=== PATIENT | male | born 1995 | race Caucasian/White ===

== ENCOUNTER 2017-02-04 16:03 | Emergency (ER) | payer BC ==
[~2017-02-04] VITALS: Ht 182.9 cm; Wt 95.4 kg
[~2017-02-04 16:03] MED LIST: AMOX1TAB61 PO; HYDR-971 PO; ONDA4TAB10 PO; OXYC-323 PO
[2017-02-04 16:14] VITALS: BP 103/72
--- NOTE | 2017-02-04 16:35 | ED.ADGEN ---
Past History Past Medical History: Anxiety, Bipolar, Depression Past Surgical History: No Surgical History Smoking: Less than 1pk/day Alcohol Use: Rarely Drug Use: Marijuana Adult General Chief Complaint Chief Complaint Multiple medical complaints HPI HPI Patient is a 21-year-old male with history of bipolar, anxiety and depression who presents with multiple medical complaints. Patient states he was recently diagnosed with cluster headaches and had a headache with nausea earlier today. Headache has since resolved. Patient last vomited 1 hour prior to ED arrival despite taking Zofran. Patient also reports elevated blood pressure at home, which was normal upon ED arrival. Patient is also seeing just specialist for chronic lower abdominal pain. He has a previous diagnosis of mesenteric adenitis. He is scheduled for a CT of his abdomen pelvis this morning but missed the appointment and rescheduled it for tomorrow. Patient reports occasional bloody stools. Denies dizziness or lightheadedness. No fever chills or sweats. No other acute symptoms or complaints. Review of Systems Review of Systems Review symptoms as per history of present illness. All other review symptoms are negative. Current Medications Current Medications Current Medications Medications (Trade) Dose Ordered Sig/Justice Start Time Stop Time Status Last Admin Dose Admin Promethazine HCl (Phenergan Im) 25 mg 1X ONCE 02/04/17 16:45 02/04/17 16:46 Allergies Allergies Allergies Coded Allergies Type Severity Reaction Last Updated Verified cephalexin Allergy Unknown 11/09/16 Yes Physical Exam Physical Exam Constitutional: Well developed, well nourished, no acute distress, non-toxic appearance. HENT: Normocephalic, atraumatic, bilateral external ears normal, oropharynx moist, no oral exudates, nose normal. Eyes: PERRLA, EOMI, conjunctiva normal, no discharge. Neck: Normal range of motion, no tenderness, supple, no stridor. Cardiovascular:Heart rate regular rhythm, no murmur. Lungs & Thorax: Bilateral breath sounds clear to auscultation Abdomen: Bowel sounds normal, soft, right lower quadrant pain, no tenderness or masses on evaluation. Skin: Warm, dry, no erythema, no rash. a. Neurologic: Alert and oriented X 3, normal motor function, normal sensory function, no focal deficits noted. [] Psychologic: Affect, anxious, worried-appearing. EKG EKG [] Radiology/Procedures Radiology/Procedures [] Course & Med Decision Making Course & Med Decision Making Pertinent Labs and Imaging studies reviewed. (See chart for details) [Patient with headache now resolved and persistent nausea ,improved with Phenergan injection in the emergency department. He has a soft nonsurgical abdomen. H/o chronic intermittent abdominal pain is been worked up GI specialist with scheduled CT of abdomen and pelvis tomorrow.Will defer further workup of chronic pain to GI specialist and headache and management of blood pressure to PCP. Will provide prescription for Phenergan should nausea persist. Final Impression Final Impression [1. Nausea 2. Chronic abdominal pain] Problems: Dragon Disclaimer Dragon Disclaimer This electronic medical record was generated, in whole or in part, using a voice recognition dictation system. NIA BRODY DO February 04, 2017 16:35
[2017-02-04] MEDS ORDERED: PROMETHAZINE IM 25 MG/ML VIAL IM ONE (16:45)
== END 2017-02-04 16:54 | disposition home or self-care (01) ==
LOC: ER 16:03
DX: R11.2 Nausea with vomiting, unspecified (principal); G89.29 Other chronic pain; R10.9 Unspecified abdominal pain; F17.200 Nicotine dependence, unspecified, uncomplicated; F12.10 Cannabis abuse, uncomplicated; Z88.1 Allergy status to other antibiotic agents
CPT/HCPCS: 96372; 99283; J2550

== ENCOUNTER → 2017-02-05 | Outpatient (CLI) | payer BC ==
[2017-02-04 16:14] VITALS: BP 103/72
[~2017-02-05] MED LIST changes: +IOHEXOL 240 MG/ML 50ML VIAL. ONE; +IOHEXOL 300 MG/ML 75 ML VIAL. IV ONE
--- NOTE | 2017-02-05 10:27 | RAD ---
Examination: CT of the pelvis with oral and IV contrast History: History of right lower quadrant abdominal pain Comparison: 11/11/2016 Technique: Axial CT images of the abdomen pelvis were performed with oral and IV contrast. Coronal and sagittal reformats are performed. PQRS Compliance Statement: One or more of the following individualized dose reduction techniques were utilized for this examination: 1. Automated exposure control 2. Adjustment of the mA and/or kV according to patient size 3. Use of iterative reconstruction technique Findings: The visualized bibasal lungs grossly appears unremarkable. No evidence of free air identified in the abdomen. The visualized liver, spleen, adrenals grossly appears unremarkable. The gallbladder is mildly distended. Stomach is mildly distended. The visualized pancreas grossly appears unremarkable. The small bowel is nondilated. The appendix is normal. Feces and gas noted throughout the colon. There is minimal prominent appearing mucosa identified in the distal ascending colon and the proximal transverse colon. The urinary bladder is mildly distended. No evidence of free fluid identified. The bilateral kidneys enhance symmetrically. No evidence of hydronephrosis. The caliber of the aorta grossly appears unremarkable. No evidence of lytic bony destructive lesion identified. Impression: 1. Minimal prominent appearing mucosa identified in the distal ascending colon and the proximal transverse colon probably due to nondistention and less likely colitis. Otherwise no acute intra-abdominal findings.
== END | disposition home or self-care (01) ==
LOC: CT 08:25
PROVIDERS: ATTEND Internal Medicine Gastroenterology
DX: R10.31 Right lower quadrant pain (principal); R19.7 Diarrhea, unspecified
CPT/HCPCS: 74177; Q9966; Q9967

== ENCOUNTER 2017-05-03 21:14 | Emergency (ER) | payer BC ==
[~2017-05-03] VITALS: Ht 185.4 cm; Wt 95.4 kg
[~2017-05-03 21:14] MED LIST changes: -IOHEXOL 240 MG/ML 50ML VIAL. ONE; -IOHEXOL 300 MG/ML 75 ML VIAL. IV ONE
[2017-05-03 21:24] VITALS: BP 147/87
[2017-05-03] MEDS ORDERED: KETOROLAC 60 MG/2 ML VIAL. IM ONE (21:30)
[2017-05-03] MEDS ORDERED: diphenhydrAMINE 50 MG/ML VIAL IM ONE (21:30)
[2017-05-03] MEDS ORDERED: PROCHLORPERAZINE 10 MG/2 ML VIAL. IM ONE (21:30)
--- NOTE | 2017-05-03 21:42 | PHYS DOC ---
Past History Past Medical History: Anxiety, Depression, Other Past Surgical History: No Surgical History Smoking: Less than 1pk/day Alcohol Use: None Drug Use: None Adult General Chief Complaint Chief Complaint: HEADACHE HPI HPI Patient is a 22 year old M who presents with headache. He describes his headache as a constant dull pain that is worsened with light and improved by dark. He has a diagnosis of cluster headache and over the past several days states that he has been having occasional headaches consistent with his previous cluster headaches. The headache he is having currently is not different than any previous cluster headaches he's had in the past. Review of Systems Review of Systems Constitutional: Denies fever or chills [] Eyes: Denies change in visual acuity, redness, or eye pain [] HENT: Denies nasal congestion or sore throat [] Respiratory: Denies cough or shortness of breath [] Cardiovascular: No additional information not addressed in HPI [] GI: Denies abdominal pain, nausea, vomiting, bloody stools or diarrhea [] : Denies dysuria or hematuria [] Musculoskeletal: Denies back pain or joint pain [] Integument: Denies rash or skin lesions [] Neurologic: Denies focal weakness or sensory changes [] Endocrine: Denies polyuria or polydipsia [] Family History Family History Noncontributory Current Medications Current Medications Current Medications Medications (Trade) Dose Ordered Sig/Justice Start Time Stop Time Status Last Admin Dose Admin Diphenhydramine HCl (Benadryl) 50 mg 1X ONCE 05/03/17 21:45 05/03/17 21:46 UNV Ketorolac Tromethamine (Toradol) 30 mg 1X ONCE 05/03/17 21:45 05/03/17 21:46 UNV Prochlorperazine Edisylate (Compazine) 10 mg 1X ONCE 05/03/17 21:45 05/03/17 21:46 UNV Sodium Chloride 1,000 ml @ 1,000 mls/hr 1X ONCE 05/03/17 21:45 05/03/17 22:44 UNV Allergies Allergies Allergies Coded Allergies Type Severity Reaction Last Updated Verified cephalexin Allergy Unknown 11/09/16 Yes Physical Exam Physical Exam Constitutional: Well developed, well nourished, no acute distress, non-toxic appearance. [] HENT: Normocephalic, atraumatic, bilateral external ears normal, oropharynx moist, no oral exudates, nose normal. [] Dental caries were noted however no tenderness to palpation on teeth Eyes: PERRLA, EOMI, conjunctiva normal, no discharge. [] Neck: Normal range of motion, no tenderness, supple, no stridor. [] Cardiovascular:Heart rate regular rhythm, no murmur [] Lungs & Thorax: Bilateral breath sounds clear to auscultation [] Abdomen: Bowel sounds normal, soft, no tenderness, no masses, no pulsatile masses. [] Skin: Warm, dry, no erythema, no rash. [] Back: No tenderness, no CVA tenderness. [] Extremities: No tenderness, no cyanosis, no clubbing, ROM intact, no edema. [] Neurologic: Alert and oriented X 3, normal motor function, normal sensory function, no focal deficits noted. [] Psychologic: Affect normal, judgement normal, mood normal. [] Current Patient Data Vital Signs Vital Signs Date Time Temp Pulse Resp B/P (MAP) Pulse Ox O2 Delivery O2 Flow Rate FiO2 05/03/17 21:24 97.8 104 20 97 Room Air Course & Med Decision Making Course & Med Decision Making Pertinent Labs and Imaging studies reviewed. (See chart for details) Elvin symptoms were consistent with previous cluster headaches. His history was consistent with cluster headaches. He was treated with Benadryl and Toradol and Compazine IV as well as IV fluids. His symptoms improved and remained stable prior to discharge Dragon Disclaimer Dragon Disclaimer This chart was dictated in whole or in part using Voice Recognition software in a busy, high-work load, and often noisy Emergency Department environment. It may contain unintended and wholly unrecognized errors or omissions. Departure Departure: Impression: Primary Impression: Cluster headache Disposition: HOME, SELF-CARE Condition: IMPROVED Referrals: STARR BOSTON (PCP) Patient Instructions: Cluster Headache Additional Instructions: Shauna was seen in the emergency room with headache. No emergency medical condition was found on history or physical exam. The symptoms were treated with IV fluids and medication. His headache was controlled prior to discharge. He is advised to follow-up with neurology as soon as possible for further evaluation and management Problem Qualifiers Primary Impression: Cluster headache Headache chronicity pattern: episodic headache Intractability: not intractable Qualified Codes: G44.019 - Episodic cluster headache, not intractable SCALETTY,PETER N MD May 03, 2017 21:42
[2017-05-03] MEDS ORDERED: KETOROLAC 30 MG/ML VIAL. IV ONE (21:45)
[2017-05-03] MEDS ORDERED: IV NORMAL SALINE 1,000ML 1,000 ML IV ONE (21:45)
[2017-05-03] MEDS ORDERED: diphenhydrAMINE 50 MG/ML VIAL IVP ONE (21:45)
[2017-05-03] MEDS ORDERED: PROCHLORPERAZINE 10 MG/2 ML VIAL. IV ONE (21:45)
== END 2017-05-03 23:00 | disposition home or self-care (01) ==
LOC: ER 21:14
DX: G44.019 Episodic cluster headache, not intractable (principal); F17.200 Nicotine dependence, unspecified, uncomplicated; F41.9 Anxiety disorder, unspecified; F32.9 Major depressive disorder, single episode, unspecified; Z88.1 Allergy status to other antibiotic agents
CPT/HCPCS: 96361; 96374; 96375; 99284; J0780; J1200; J1885; J7030

== ENCOUNTER 2017-08-06 15:43 | Emergency (ER) | payer BC ==
[2017-08-06 15:43] VITALS: BP 151/102
--- NOTE | 2017-08-06 16:37 | RAD ---
CT of the abdomen and pelvis without contrast 08/06/2017 Indication: Bilateral flank pain, lower abdominal pain, hematuria, and painful urination. Onset today. Comparison study: CT of the abdomen and pelvis with contrast February 05, 2017 Technique: Multidetector CT imaging of the abdomen and pelvis was performed without the interim ministration of IV contrast. Findings: The visualized lung bases are grossly unremarkable. The liver is diffusely low in attenuation, most commonly reflecting hepatic steatosis. The gallbladder is grossly unremarkable. The spleen is mildly enlarged but grossly stable from prior studies. Adrenal glands are within normal limits. Pancreas is grossly unremarkable. Bilateral kidneys appear grossly unremarkable noncontrast enhanced appearance. There is no evidence of nephrolithiasis or hydronephrosis. Bilateral ureters are decompressed and normal in course and caliber. The visualized bladder is grossly unremarkable. There is no evidence of bowel obstruction. There appears to be at least mild bowel wall thickening involving the proximal jejunum, just beyond the ligament of Treitz. Evaluation is limited without oral and IV contrast. The appendix is unremarkable in appearance. No free fluid or free air is seen in the abdomen or pelvis. No evidence of acute osseous abnormality is identified. Impression: 1. At least mild bowel wall thickening involving the proximal jejunum. Though evaluation is limited without IV and oral contrast. The appearance is somewhat nonspecific, may represent a focal enteritis. Follow-up CT or MR enterography could be considered as clinically indicated. Alternatively given presence of findings in the proximal most small bowel, a follow-up endoscopy could be considered. 2. No evidence of nephrolithiasis, hydronephrosis, or acute obstructive uropathy. 3. Similar splenomegaly. 4. Hepatic steatosis
[2017-08-06 16:54] LABS: CALCIUM 9.8 mg/dL (8.5-10.1); CREATININE 0.9 mg/dL (0.7-1.3); GFR 104.6; POTASSIUM 3.7 mmol/L (3.5-5.1)
--- NOTE | 2017-08-06 17:13 | PHYS DOC ---
Past History Past Medical History: Migraines, Other Past Surgical History: No Surgical History Smoking: Less than 1pk/day Alcohol Use: None Drug Use: Marijuana Adult General Chief Complaint Chief Complaint: PAIN ON URINATION [facility] HPI Patient is a 22 year old male who presents with 1 day history of dysuria frequency and burning questionable right flank pain that resolved; no fever no diarrhea no history of STDs. Review of Systems Review of Systems Constitutional: Denies fever or chills [] Eyes: Denies change in visual acuity, redness, or eye pain [] HENT: Denies nasal congestion or sore throat [] Respiratory: Denies cough or shortness of breath [] Cardiovascular: No additional information not addressed in HPI [] GI: Denies abdominal pain, nausea, vomiting, bloody stools or diarrhea [] : Denies dysuria or hematuria [] Musculoskeletal: Denies back pain or joint pain [] Integument: Denies rash or skin lesions [] Neurologic: Denies headache, focal weakness or sensory changes [] Endocrine: Denies polyuria or polydipsia [] All other systems were reviewed and found to be within normal limits, except as documented in this note. Allergies Allergies Allergies Coded Allergies Type Severity Reaction Last Updated Verified cephalexin Allergy Unknown 11/09/16 Yes Physical Exam Physical Exam Constitutional: Well developed, well nourished, no acute distress, non-toxic appearance. [] HENT: Normocephalic, atraumatic, bilateral external ears normal, oropharynx moist, no oral exudates, nose normal. [] Eyes: PERRLA, EOMI, conjunctiva normal, no discharge. [] Neck: Normal range of motion, no tenderness, supple, no stridor. [] Cardiovascular:Heart rate regular rhythm, no murmur [] Lungs & Thorax: Bilateral breath sounds clear to auscultation [] Abdomen: Bowel sounds normal, soft, no tenderness, no masses, no pulsatile masses. exam testes are distended nontender no scrotal swelling no inguinal hernia palpable penis circumcised no lesions no swelling[] Skin: Warm, dry, no erythema, no rash. [] Back: No tenderness, no CVA tenderness. [] Extremities: No tenderness, no cyanosis, no clubbing, ROM intact, no edema. [] Neurologic: Alert and oriented X 3, normal motor function, normal sensory function, no focal deficits noted. [] Psychologic: Affect normal, judgement normal, mood normal. [] Current Patient Data Vital Signs Vital Signs Date Time Temp Pulse Resp B/P (MAP) Pulse Ox O2 Delivery O2 Flow Rate FiO2 08/06/17 15:43 97.6 120 18 99 Room Air Lab Results Laboratory Tests Test 08/06/17 16:33 Sodium Level 139 mmol/L (136-145) Potassium Level 3.7 mmol/L (3.5-5.1) Chloride Level 99 mmol/L (98-107) Carbon Dioxide Level 32 mmol/L (21-32) Anion Gap 8 (6-14) Blood Urea Nitrogen 10 mg/dL (8-26) Creatinine 0.9 mg/dL (0.7-1.3) Estimated GFR (Cockcroft-Gault) 104.6 Glucose Level 87 mg/dL (70-99) Calcium Level 9.8 mg/dL (8.5-10.1) EKG EKG [] Radiology/Procedures Radiology/Procedures CT scan abdomen and pelvis negative per radiology report[] Course & Med Decision Making Course & Med Decision Making Pertinent Labs and Imaging studies reviewed. (See chart for details) [GC Chlamydia are pending. UA showed some trace hematuria so the patient may have passed a kidney stone.] Dragon Disclaimer Dragon Disclaimer This electronic medical record was generated, in whole or in part, using a voice recognition dictation system. Departure Departure: Impression: Primary Impression: Renal colic on right side Additional Impressions: Hematuria Dysuria Disposition: HOME, SELF-CARE Condition: IMPROVED Referrals: STARR BOSTON (PCP) Patient Instructions: Hematuria, Adult Problem Qualifiers JAYANT ANDERSON MD Aug 06, 2017 17:13
[2017-08-06 17:14] LABS: BACTERIA,URINE 0 /HPF (0-FEW); BILIRUBIN,URINE NEG (NEG); CLARITY,URINE CLEAR; COLOR,URINE STRAW; GLUCOSE,URINE NEG (NEG); NITRITE,URINE NEG (NEG); SQUAMOUS EPITHELIAL CELL,UR OCC /LPF; UROBILINOGEN,URINE 0.2 mg/dL (0.2 mg/dL); WBC,URINE OCC /HPF (0-4)
== END 2017-08-06 18:21 | disposition home or self-care (01) ==
LOC: ER 15:43
DX: N23 Unspecified renal colic (principal); R31.9 Hematuria, unspecified; R30.0 Dysuria; F17.210 Nicotine dependence, cigarettes, uncomplicated; F12.10 Cannabis abuse, uncomplicated; Z88.1 Allergy status to other antibiotic agents
CPT/HCPCS: 36415; 74176; 80048; 81001; 87491; 87591; 99285-25

== ENCOUNTER 2018-07-16 09:36 | Inpatient (IN) | payer BC ==
[~2018-07-16] VITALS: Ht 182.9 cm; Wt 99.3 kg
[2018-07-16 10:11] LABS: BASO # 0.1 x10^3/uL (0.0-0.2); BASO % 1 % (0-3); EOS # 0.2 x10^3/uL (0.0-0.7); EOS % 2 % (0-3); HEMATOCRIT 46.4 % (39.0-53.0); HEMOGLOBIN 16.3 g/dL (13.0-17.5); LYMPH # 2.4 x10^3/uL (1.0-4.8); LYMPH % 27 % (24-48); MEAN CORPUSCULAR HEMOGLOBIN 31 pg (25-35); MEAN CORPUSCULAR HGB CONC 35 g/dL (31-37); MEAN CORPUSCULAR VOLUME 87 fL (79-100); MONO # 1.1 x10^3/uL (0.0-1.1); MONO % 12 % (0-9); NEUT # 5.3 x10^3uL (1.8-7.7); NEUT % 59 % (31-73); PLATELET COUNT 240 x10^3/uL (140-400); RED BLOOD COUNT 5.33 x10^6/uL (4.30-5.70); RED CELL DISTRIBUTION WIDTH 13.5 % (11.5-14.5)
[2018-07-16 10:22] LABS: ALBUMIN 4.7 g/dL (3.4-5.0); CALCIUM 9.7 mg/dL (8.5-10.1); CREATININE 0.9 mg/dL (0.7-1.3); DIRECT BILIRUBIN 0.2 mg/dL (0.0-0.2); GFR 103.7; POTASSIUM 3.3 mmol/L (3.5-5.1); TOTAL BILIRUBIN 1.4 mg/dL (0.2-1.0); TOTAL PROTEIN 8.1 g/dL (6.4-8.2)
--- NOTE | 2018-07-16 10:22 | RAD ---
PQRS Compliance Statement: One or more of the following individualized dose reduction techniques were utilized for this examination: 1. Automated exposure control 2. Adjustment of the mA and/or kV according to patient size 3. Use of iterative reconstruction technique CT HEAD AND CERVICAL SPINE WITHOUT CONTRAST History: ALTERED MENTAL STATUS, WAS HITTING HIS HEAD AGAINST WALL THIS AM Comparison: None. Procedure: Axial images are obtained of the head from the skull base through the vertex without IV contrast. Noncontrast helical CT of the cervical spine was performed. Axial, sagittal, and coronal reconstructions were obtained. Findings: The ventricles and sulci are normal for the patient's age. No mass-effect, midline shift, hemorrhage or obvious acute infarction is identified. Basilar cisterns are patent. Bone windows demonstrate no significant calvarial abnormality. The visualized paranasal sinuses are clear. Mastoid air cells are well aerated. There is no evidence of acute fracture or acute malalignment of the cervical spine. The vertebral body height and alignment are maintained. 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 The facet joints are intact. No significant narrowing of the central canal. The craniovertebral junction is normal. Opacities in the bilateral external auditory canals. Visualized soft tissues of the neck demonstrate no significant abnormalities. The visualized lung apices are clear. IMPRESSION: 1. No acute intracranial abnormality. 2. No acute fracture of the cervical spine. Electronically signed by: Ariel Arellano MD (07/16/2018 10:19 AM) [id number]
[2018-07-16 12:19] LABS: BARBITURATES NEG (NEG); BENZODIAZEPINES NEG (NEG); CANNABINOIDS POS (NEG); COCAINE NEG (NEG); METHADONE NEG (NEG); OPIATES NEG (NEG); PHENCYCLIDINE NEG (NEG)
[2018-07-16 12:20] LABS: AMPHETAMINE/METHAMPHETAMINE NEG (NEG)
[2018-07-16 12:24] LABS: BACTERIA,URINE 0 /HPF (0-FEW); BILIRUBIN,URINE NEG (NEG); CLARITY,URINE HAZY; COLOR,URINE YELLOW; GLUCOSE,URINE NEG (NEG); NITRITE,URINE NEG (NEG); RBC,URINE 0 /HPF (0-2); SQUAMOUS EPITHELIAL CELL,UR FEW /LPF; UROBILINOGEN,URINE 0.2 mg/dL (0.2 mg/dL); WBC,URINE OCC /HPF (0-4)
[2018-07-16] MEDS ORDERED: POTASSIUM CHLORIDE 20 MEQ TABLET.ER. PO ONE (12:30)
--- NOTE | 2018-07-16 13:33 | PHYS DOC ---
Past History Past Medical History: Depression, Migraines, Other Past Surgical History: No Surgical History Smoking: Less than 1pk/day Alcohol Use: None Drug Use: Marijuana Adult General Chief Complaint Chief Complaint: SUICDAL IDEATION HPI HPI Patient is a 23 year old male who was in by EMS because of suicidal ideation. Patient was banging his head multiple times on cabinet top this morning and his called 911 because of suicidal ideation. Patient has history of depression and previous suicidal ideation and mental hospitalization. Patient's stated that she had to put herself between him and the weapon at home for prevention of hurting himself. Patient denies suicidal and homicidal ideation and states he had hallucination. EMS brought him with c-collar in place because of head injury. Review of Systems Review of Systems Constitutional: Denies fever or chills [] Eyes: Denies change in visual acuity, redness, or eye pain [] HENT: Denies nasal congestion or sore throat [] Respiratory: Denies cough or shortness of breath [] Cardiovascular: No additional information not addressed in HPI [] GI: Denies abdominal pain, nausea, vomiting, bloody stools or diarrhea [] : Denies dysuria or hematuria [] Musculoskeletal: Denies back pain or joint pain [] Integument: Denies rash or skin lesions [] Neurologic: Denies headache, focal weakness or sensory changes [] Endocrine: Denies polyuria or polydipsia [] All other systems were reviewed and found to be within normal limits, except as documented in this note. Current Medications Current Medications Current Medications Medications (Trade) Dose Ordered Sig/[facility] Start Time Stop Time Status Last Admin Dose Admin Potassium Chloride (Klor-Con) 40 meq 1X ONCE 07/16/18 12:30 07/16/18 12:31 DC 07/16/18 12:29 40 MEQ Allergies Allergies Allergies Coded Allergies Type Severity Reaction Last Updated Verified cephalexin Allergy Unknown 11/09/16 Yes Physical Exam Physical Exam Constitutional: Well developed, well nourished, mild distress, non-toxic appearance. [] HENT: Normocephalic, atraumatic, bilateral external ears normal, oropharynx moist, no oral exudates, nose normal. [] Eyes: PERRLA, EOMI, conjunctiva normal, no discharge. [] Neck: Immobilized by c-collar Cardiovascular:Heart rate regular rhythm, no murmur [] Lungs & Thorax: Bilateral breath sounds clear to auscultation [] Abdomen: Bowel sounds normal, soft, no tenderness, no masses, no pulsatile masses. [] Skin: Warm, dry, no erythema, no rash. [] Back: No tenderness, no CVA tenderness. [] Extremities: No tenderness, no cyanosis, no clubbing, ROM intact, no edema. [] Neurologic: Alert and oriented X 3, normal motor function, normal sensory function, no focal deficits noted. [] Psychologic: Affect anxious, judgement normal, mood normal. [] Current Patient Data Vital Signs Vital Signs Date Time Temp Pulse Resp B/P (MAP) Pulse Ox O2 Delivery O2 Flow Rate FiO2 07/16/18 09:36 97.4 77 18 96 Room Air Lab Results Laboratory Tests Test 07/16/18 09:58 07/16/18 11:54 White Blood Count 9.0 x10^3/uL (4.0-11.0) Red Blood Count 5.33 x10^6/uL (4.30-5.70) Hemoglobin 16.3 g/dL (13.0-17.5) Hematocrit 46.4 % (39.0-53.0) Mean Corpuscular Volume 87 fL (79-100) Mean Corpuscular Hemoglobin 31 pg (25-35) Mean Corpuscular Hemoglobin Concent 35 g/dL (31-37) Red Cell Distribution Width 13.5 % (11.5-14.5) Platelet Count 240 x10^3/uL (140-400) Neutrophils (%) (Auto) 59 % (31-73) Lymphocytes (%) (Auto) 27 % (24-48) Monocytes (%) (Auto) 12 % (0-9) H Eosinophils (%) (Auto) 2 % (0-3) Basophils (%) (Auto) 1 % (0-3) Neutrophils # (Auto) 5.3 x10^3uL (1.8-7.7) Lymphocytes # (Auto) 2.4 x10^3/uL (1.0-4.8) Monocytes # (Auto) 1.1 x10^3/uL (0.0-1.1) Eosinophils # (Auto) 0.2 x10^3/uL (0.0-0.7) Basophils # (Auto) 0.1 x10^3/uL (0.0-0.2) Sodium Level 137 mmol/L (136-145) Potassium Level 3.3 mmol/L (3.5-5.1) L Chloride Level 101 mmol/L (98-107) Carbon Dioxide Level 25 mmol/L (21-32) Anion Gap 11 (6-14) Blood Urea Nitrogen 15 mg/dL (8-26) Creatinine 0.9 mg/dL (0.7-1.3) Estimated GFR (Cockcroft-Gault) 103.7 Glucose Level 84 mg/dL (70-99) Calcium Level 9.7 mg/dL (8.5-10.1) Total Bilirubin 1.4 mg/dL (0.2-1.0) H Direct Bilirubin 0.2 mg/dL (0.0-0.2) Aspartate Amino Transferase (AST) 49 U/L (15-37) H Alanine Aminotransferase (ALT) 74 U/L (16-63) H Alkaline Phosphatase 91 U/L (46-116) Total Protein 8.1 g/dL (6.4-8.2) Albumin 4.7 g/dL (3.4-5.0) Ethyl Alcohol Level < 10 mg/dL (0-10) Urine Collection Type Void Urine Color Yellow Urine Clarity Hazy Urine pH 5.5 Urine Specific [place] 1.020 Urine Protein Neg (NEG-TRACE) Urine Glucose (UA) Neg mg/dL (NEG) Urine Ketones (Stick) >=160 mg/dL (NEG) Urine Blood Neg (NEG) Urine Nitrite Neg (NEG) Urine Bilirubin Neg (NEG) Urine Urobilinogen Dipstick 0.2 mg/dL (0.2 mg/dL) Urine Leukocyte Esterase Neg (NEG) Urine RBC 0 /HPF (0-2) Urine WBC Occ /HPF (0-4) Urine Squamous Epithelial Cells Few /LPF Urine Bacteria 0 /HPF (0-FEW) Urine Mucus Slight /LPF Urine Opiates Screen Neg (NEG) Urine Methadone Screen Neg (NEG) Urine Barbiturates Neg (NEG) Urine Phencyclidine Screen Neg (NEG) Urine Amphetamine/Methamphetamine Neg (NEG) Urine Benzodiazepines Screen Neg (NEG) Urine Cocaine Screen Neg (NEG) Urine Cannabinoids Screen Pos (NEG) Urine Ethyl Alcohol Neg (NEG) EKG EKG [] Radiology/Procedures Radiology/Procedures [address] [address] IMAGING REPORT Signed PATIENT: DELBERT RHODES ACCOUNT: [id number] : 1995 LOCATION: ER AGE: 23 SEX: M EXAM STATUS: REG ER ORD. PHYSICIAN: CHANDLER RODRIGUEZ MD REASON: head injury PROCEDURE: [facility] Compliance Statement: One or more of the following individualized dose reduction techniques were utilized for this examination: 1. Automated exposure control 2. Adjustment of the mA and/or kV according to patient size 3. Use of iterative reconstruction technique CT HEAD AND CERVICAL SPINE WITHOUT CONTRAST History: ALTERED MENTAL STATUS, WAS HITTING HIS HEAD AGAINST WALL THIS AM Comparison: None. Procedure: Axial images are obtained of the head from the skull base through the vertex without IV contrast. Noncontrast helical CT of the cervical spine was performed. Axial, sagittal, and coronal reconstructions were obtained. Findings: The ventricles and sulci are normal for the patient's age. No mass-effect, midline shift, hemorrhage or obvious acute infarction is identified. Basilar cisterns are patent. Bone windows demonstrate no significant calvarial abnormality. The visualized paranasal sinuses are clear. Mastoid air cells are well aerated. There is no evidence of acute fracture or acute malalignment of the cervical spine. The vertebral body height and alignment are maintained. 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 The facet joints are intact. No significant narrowing of the central canal. The craniovertebral junction is normal. Opacities in the bilateral external auditory canals. Visualized soft tissues of the neck demonstrate no significant abnormalities. The visualized lung apices are clear. IMPRESSION: 1. No acute intracranial abnormality. 2. No acute fracture of the cervical spine. Electronically signed by: Ariel Arellano MD (07/16/2018 10:19 AM) [id number] DICTATED AND SIGNED BY: ARIEL ARELLANO MD DATE: 07/16/18 1014 CC: CHANDLER RODRIGUEZ MD; ST[facility] ~ Course & Med Decision Making Course & Med Decision Making Pertinent Labs and Imaging studies reviewed. (See chart for details) Evaluation of patient in ER showed 23-year-old male patient brought in by EMS because of suicidal ideation and head injury. Patient denies suicidal ideation with his stated he wanted to use a gun to kill himself and banging his head against the cabinet top. Patient had unremarkable labs except for mild elevation of liver function tests and hypokalemia. Was evaluated by tele- psychiatric and had criteria for inpatient admission. Unfortunately there was not any available psych bed for tonight. Dr. Gomez accepted admission at 1727. Dragon Disclaimer Dragon Disclaimer This electronic medical record was generated, in whole or in part, using a voice recognition dictation system. Departure Departure: Impression: Primary Impression: Suicidal ideation Additional Impressions: Hypokalemia Elevated liver function tests Tobacco abuse Disposition: ADMITTED INPATIENT (at 1728) Admitting Physician: Other (Dr. Juanjo Ruiz accepted admission at 1727) Condition: IMPROVED Referrals: STARR BOSTON (PCP) Problem Qualifiers CHANDLER RODRIGUEZ MD Jul 16, 2018 13:33
[2018-07-16] MEDS ORDERED: LORazepam 1 MG TABLET PO ONE (16:15)
[2018-07-16 19:29] VITALS: BP 147/82
[2018-07-16 20:00] VITALS: BP 144/69
[2018-07-16] MEDS: IBUPROFEN 600 MG TABLET. PO PRN (20:43)
[2018-07-16 21:00] VITALS: BP 149/68
[2018-07-16 22:00] VITALS: BP 110/60
[2018-07-16 23:33] VITALS: BP 100/51
[2018-07-17 01:30] VITALS: BP 106/44
[2018-07-17 03:00] VITALS: BP 122/66
[2018-07-17 05:20] VITALS: BP 112/60
[2018-07-17 06:07] LABS: CALCIUM 9.5 mg/dL (8.5-10.1); CREATININE 0.9 mg/dL (0.7-1.3); GFR 103.7; POTASSIUM 3.8 mmol/L (3.5-5.1)
[2018-07-17 10:53] VITALS: BP 127/81
[2018-07-17 11:43] LABS: ALBUMIN 4.4 g/dL (3.4-5.0); DIRECT BILIRUBIN 0.2 mg/dL (0.0-0.2); TOTAL BILIRUBIN 0.9 mg/dL (0.2-1.0)
[2018-07-17] MEDS: LORazepam 1 MG TABLET PO PRN ×2 (14:15→22:40)
[2018-07-17 14:57] VITALS: BP 128/63
[2018-07-17 19:35] VITALS: BP 143/67
--- NOTE | 2018-07-17 22:37 | PDOC1 ---
History and Physical Date of Admission: Date of Admission: July 17, 2018 Chief Complaint: Chief Complain: Suicidal ideation, abdominal pain, groin pain Source: Source: Caregiver, Chart review, Patient HPI: HPI: Patient is a 23 year old male who was in by EMS with report of suicidal ideation. Patient was reportedly banging his head multiple times on cabinet top this morning and his called 911 because of suicidal ideation. Patient has history of depression and previous suicidal ideation and mental hospitalization. Patient's stated that she had to put herself between him and the countertop at home for prevention of hurting himself. Patient denies current suicidal and homicidal ideation and states he had hallucination. EMS brought him with c-collar in place because of head injury. Patient has many stressors, they used to live here moved to [place] briefly and had moved back he does not have a job. His is the breadwinner she is now . He has episodes of cyclic vomiting and abdominal pain related to his chronic marijuana use. Recently he's had right upper quadrant abdominal pain especially after eating developing some nausea no vomiting no stool changes no fever chills or myalgias no bad food exposure. He also has a lump in his right groin he thinks is a lymph node but is concerned it could be a hernia is painful at times. States he's been evaluated by oncology for his lymph nodes and refused bone marrow biopsy. States he was evaluated for abdominal pain a year and a half ago but at the time his pain was right lower quadrant and he was diagnosed with mesenteric adenitis. Denies prior abdominal surgeries and I find him today sitting up in bed watching television in no apparent distress. He states that he is not suicidal he is just frustrated about his current stressors and pain complaints. I discussed the elevation of his liver enzymes ( very mild) from the ED blood and with his positive Conde sign on exam the possibility of cholecystitis. He is agreeable to stay for ultrasound of his right upper quadrant as well as the right groin swelling and recheck of his LFTs. He is no longer suicidal ideation. Past Medical History: GI: Other (cannabinoids induce cyclic vomiting syndrome, mesenteric adenitis) Heme/Onc: Other (lymphadenopathy) Psych: Anxiety, Depression, Other (prior suicide attempts with overdose) Past Surgical History: PSH: No pertinent Social History: Smoke: 1 pack per day Alcohol: occassional Drugs: Marijuana Allergies: Allergies: Coded Allergies: cephalexin (Verified Allergy, Unknown, 11/09/16) Current Medications: Current Medications: Current Medications Medications (Trade) Dose Ordered Sig/[facility] Start Time Stop Time Status Last Admin Dose Admin Ibuprofen (Motrin) 600 mg PRN Q6HRS PRN 07/16/18 20:45 07/16/18 20:43 600 MG Lorazepam (Ativan) 1 mg PRN Q8HRS PRN 07/17/18 14:00 07/17/18 14:15 1 MG Potassium Chloride (Klor-Con) 40 meq 1X ONCE 07/16/18 12:30 07/16/18 12:31 DC 07/16/18 12:29 40 MEQ ROS: ROS: Constitutional: No fever or chills Eyes: No eye pain or blurred vision Skin: No rash or itching Cardiovascular: No chest pain, syncope, palpitations, dyspnea on exertion, or edema Respiratory: No cough or difficulty breathing Gastrointestinal: See history of present illness Neurologic: No headaches or focal neurologic deficits Endocrine: No heat or cold intolerance Genitourinary: No incontinence or hematuria Musculoskeletal: No joint pain or swelling Lymphatics: See history of present illness and past medical history Psychiatric: See history of present illness PE: PE: Gen.: Alert, pleasant, no apparent distress HEENT: Normocephalic atraumatic, PERRLA EOMI, no scleral icterus, oral mucosa pink and moist Neck: Supple, no lymphadenopathy, nontender Cardiovascular: Normal S1 and S2 no murmurs Pulmonary: Lungs are clear bilaterally with good air movement no respiratory distress Abdomen: Soft nondistended positive Conde negative McBurney no rebound or guard bowel sounds present no masses Extremities: No clubbing, cyanosis or edema, appears to be a reactive lymph node at the right inguinal region is tender no evidence of infection at the genitals or right lower extremity Neuro: Alert and oriented 3, cranial nerves II through XII grossly intact, no lateralizing neuro deficits Skin: Warm, dry Vitals: Vitals: Vital Signs Date Time Temp Pulse Resp B/P (MAP) Pulse Ox O2 Delivery O2 Flow Rate FiO2 07/17/18 19:35 98.1 81 20 143/67 (92) 98 Room Air 07/17/18 05:20 97.0 Labs: Labs: Laboratory Tests Test 07/16/18 09:58 07/16/18 11:54 07/16/18 19:30 07/17/18 05:05 White Blood Count 9.0 x10^3/uL (4.0-11.0) Red Blood Count 5.33 x10^6/uL (4.30-5.70) Hemoglobin 16.3 g/dL (13.0-17.5) Hematocrit 46.4 % (39.0-53.0) Mean Corpuscular Volume 87 fL (79-100) Mean Corpuscular Hemoglobin 31 pg (25-35) Mean Corpuscular Hemoglobin Concent 35 g/dL (31-37) Red Cell Distribution Width 13.5 % (11.5-14.5) Platelet Count 240 x10^3/uL (140-400) Neutrophils (%) (Auto) 59 % (31-73) Lymphocytes (%) (Auto) 27 % (24-48) Monocytes (%) (Auto) 12 % (0-9) Eosinophils (%) (Auto) 2 % (0-3) Basophils (%) (Auto) 1 % (0-3) Neutrophils # (Auto) 5.3 x10^3uL (1.8-7.7) Lymphocytes # (Auto) 2.4 x10^3/uL (1.0-4.8) Monocytes # (Auto) 1.1 x10^3/uL (0.0-1.1) Eosinophils # (Auto) 0.2 x10^3/uL (0.0-0.7) Basophils # (Auto) 0.1 x10^3/uL (0.0-0.2) Sodium Level 137 mmol/L (136-145) 139 mmol/L (136-145) Potassium Level 3.3 mmol/L (3.5-5.1) 3.8 mmol/L (3.5-5.1) Chloride Level 101 mmol/L (98-107) 104 mmol/L (98-107) Carbon Dioxide Level 25 mmol/L (21-32) 27 mmol/L (21-32) Anion Gap 11 (6-14) 8 (6-14) Blood Urea Nitrogen 15 mg/dL (8-26) 13 mg/dL (8-26) Creatinine 0.9 mg/dL (0.7-1.3) 0.9 mg/dL (0.7-1.3) Estimated GFR (Cockcroft-Gault) 103.7 103.7 Glucose Level 84 mg/dL (70-99) 89 mg/dL (70-99) Calcium Level 9.7 mg/dL (8.5-10.1) 9.5 mg/dL (8.5-10.1) Total Bilirubin 1.4 mg/dL (0.2-1.0) 0.9 mg/dL (0.2-1.0) Direct Bilirubin 0.2 mg/dL (0.0-0.2) 0.2 mg/dL (0.0-0.2) Aspartate Amino Transf (AST/SGOT) 49 U/L (15-37) 42 U/L (15-37) Alanine Aminotransferase (ALT/SGPT) 74 U/L (16-63) 70 U/L (16-63) Alkaline Phosphatase 91 U/L (46-116) 86 U/L (46-116) Total Protein 8.1 g/dL (6.4-8.2) 8.0 g/dL (6.4-8.2) Albumin 4.7 g/dL (3.4-5.0) 4.4 g/dL (3.4-5.0) Ethyl Alcohol Level < 10 mg/dL (0-10) Urine Collection Type Void Urine Color Yellow Urine Clarity Hazy Urine pH 5.5 Urine Specific [place] 1.020 Urine Protein Neg (NEG-TRACE) Urine Glucose (UA) Neg mg/dL (NEG) Urine Ketones (Stick) >=160 mg/dL (NEG) Urine Blood Neg (NEG) Urine Nitrite Neg (NEG) Urine Bilirubin Neg (NEG) Urine Urobilinogen Dipstick 0.2 mg/dL (0.2 mg/dL) Urine Leukocyte Esterase Neg (NEG) Urine RBC 0 /HPF (0-2) Urine WBC Occ /HPF (0-4) Urine Squamous Epithelial Cells Few /LPF Urine Bacteria 0 /HPF (0-FEW) Urine Mucus Slight /LPF Urine Opiates Screen Neg (NEG) Urine Methadone Screen Neg (NEG) Urine Barbiturates Neg (NEG) Urine Phencyclidine Screen Neg (NEG) Urine Amphetamine/Methamphetamine Neg (NEG) Urine Benzodiazepines Screen Neg (NEG) Urine Cocaine Screen Neg (NEG) Urine Cannabinoids Screen Pos (NEG) Urine Ethyl Alcohol Neg (NEG) Nasal Screen MRSA (PCR) Negative (Negative) Lipase 238 U/L (73-393) VTE Prophylaxis: VTE Prophylaxis Devices: No VTE Pharmacological Prophylaxi: No Assessment/Plan: A/P: Suicidal ideation: No longer suicidal Hypokalemia Marijuana abuse with cannabinol and associated cyclic vomiting syndrome Right upper quadrant pain with elevated LFTs: Ultrasound of the abdomen check lipase recheck labs in morning as well He is agreeable to stay for above testing and continues to deny suicidal ideation. ELMA LEIVA DO Jul 17, 2018 22:37
[2018-07-17] MEDS: IBUPROFEN 600 MG TABLET. PO PRN (22:41)
[2018-07-18 00:05] VITALS: BP 117/66
[2018-07-18 06:08] VITALS: BP 97/61
[2018-07-18 06:44] LABS: BASO # 0.1 x10^3/uL (0.0-0.2); BASO % 1 % (0-3); EOS # 0.2 x10^3/uL (0.0-0.7); EOS % 4 % (0-3); HEMATOCRIT 44.8 % (39.0-53.0); HEMOGLOBIN 15.7 g/dL (13.0-17.5); LYMPH # 2.4 x10^3/uL (1.0-4.8); LYMPH % 39 % (24-48); MEAN CORPUSCULAR HEMOGLOBIN 31 pg (25-35); MEAN CORPUSCULAR HGB CONC 35 g/dL (31-37); MEAN CORPUSCULAR VOLUME 88 fL (79-100); MONO # 0.8 x10^3/uL (0.0-1.1); MONO % 13 % (0-9); NEUT # 2.7 x10^3uL (1.8-7.7); NEUT % 43 % (31-73); PLATELET COUNT 232 x10^3/uL (140-400); RED CELL DISTRIBUTION WIDTH 13.5 % (11.5-14.5); WHITE BLOOD COUNT 6.2 x10^3/uL (4.0-11.0)
[2018-07-18 06:54] LABS: ALBUMIN 4.2 g/dL (3.4-5.0); ALBUMIN/GLOBULIN RATIO 1.3 (1.0-1.7); CALCIUM 9.3 mg/dL (8.5-10.1); GFR 91.8; POTASSIUM 3.8 mmol/L (3.5-5.1); TOTAL BILIRUBIN 0.9 mg/dL (0.2-1.0); TOTAL PROTEIN 7.5 g/dL (6.4-8.2)
--- NOTE | 2018-07-18 09:45 | RAD ---
Examination: ABDOMEN COMPLETE History: DX: + Conde's sign; ABD discomfort; Elevated LFT's IMP: Fatty Liver; Enlarged Spleen; Aorta hard to visualize
PT had prior CT scan 08-06-2017 for Conparison Comparison/Correlation: 08/06/2017 CT abdomen and pelvis without contrast Findings: Gallbladder wall thickness of 0.1 cm is present. No cholelithiasis or pericholecystic fluid. Liver length is 17.8 cm longitudinal. Common bile that measures 0.2 cm diameter. Fatty infiltration of liver is present. Right kidney measures 12.3 cm 4.6 cm x 4.4 cm. Left kidney measures 12.7 cm x 4.18 x 4.8 cm. No hydronephrosis. Renal contours and echotexture are unremarkable. Proximal pancreas is unremarkable. Distal pancreas is obscured by bowel gas. Portal venous flow is unremarkable. Spleen is borderline in size measuring 13.7 cm longitudinal. Visualized inferior vena cava is unremarkable. The abdominal aorta is only partially visualized and appears unremarkable. Impression: Fatty infiltration of the liver. Borderline spleen size. Electronically signed by: Jason Holbrook MD (07/18/2018 9:42 AM) [facility]
--- NOTE | 2018-07-18 09:46 | RAD ---
Examination: EXT NON VASC RIGHT History: DX: Evaluate Right Groin swelling/pressure- patient states swelling has gone down
IMP: Nothing seen by Ultrasound Comparison/Correlation: None Findings: Ultrasound imaging of the right groin region was performed. There is no mass or cyst. No bowel loop identified. No soft tissue edema. Impression: Normal ultrasound exam of the right groin. Electronically signed by: Jason Holbrook MD (07/18/2018 9:43 AM) [facility]
[2018-07-18] MEDS: LORazepam 1 MG TABLET PO PRN (10:03)
--- NOTE | 2018-07-18 22:39 | PDOC3 ---
Discharge Summary Visit Information: Date of Admission: Jul 17, 2018 Date of Discharge: Jul 18, 2018 Admitting Diagnosis: suicidal ideation, abdominal pain, marijuana abuse with Final Diagnosis Problems Medical Problems: (1) Elevated liver function tests Status: Acute (2) Hypokalemia Status: Acute (3) Suicidal ideation Status: Acute (4) Tobacco abuse Status: Acute Brief Hospital Course: Allergies: Allergies Coded Allergies Type Severity Reaction Last Updated Verified cephalexin Allergy Unknown 11/09/16 Yes Vital Signs: Vital Signs Date Time Temp Pulse Resp B/P (MAP) Pulse Ox O2 Delivery O2 Flow Rate FiO2 07/18/18 08:45 Room Air 07/18/18 06:08 97.7 50 16 97/61 (73) 96 07/17/18 05:20 97.0 Lab Results: Laboratory Tests Test 07/17/18 05:05 07/18/18 06:18 Sodium Level 139 mmol/L (136-145) 138 mmol/L (136-145) Potassium Level 3.8 mmol/L (3.5-5.1) 3.8 mmol/L (3.5-5.1) Chloride Level 104 mmol/L (98-107) 103 mmol/L (98-107) Carbon Dioxide Level 27 mmol/L (21-32) 30 mmol/L (21-32) Anion Gap 8 (6-14) 5 (6-14) Blood Urea Nitrogen 13 mg/dL (8-26) 13 mg/dL (8-26) Creatinine 0.9 mg/dL (0.7-1.3) 1.0 mg/dL (0.7-1.3) Estimated GFR (Cockcroft-Gault) 103.7 91.8 Glucose Level 89 mg/dL (70-99) 88 mg/dL (70-99) Calcium Level 9.5 mg/dL (8.5-10.1) 9.3 mg/dL (8.5-10.1) Total Bilirubin 0.9 mg/dL (0.2-1.0) 0.9 mg/dL (0.2-1.0) Direct Bilirubin 0.2 mg/dL (0.0-0.2) Aspartate Amino Transf (AST/SGOT) 42 U/L (15-37) 35 U/L (15-37) Alanine Aminotransferase (ALT/SGPT) 70 U/L (16-63) 68 U/L (16-63) Alkaline Phosphatase 86 U/L (46-116) 78 U/L (46-116) Total Protein 8.0 g/dL (6.4-8.2) 7.5 g/dL (6.4-8.2) Albumin 4.4 g/dL (3.4-5.0) 4.2 g/dL (3.4-5.0) Lipase 238 U/L (73-393) White Blood Count 6.2 x10^3/uL (4.0-11.0) Red Blood Count 5.10 x10^6/uL (4.30-5.70) Hemoglobin 15.7 g/dL (13.0-17.5) Hematocrit 44.8 % (39.0-53.0) Mean Corpuscular Volume 88 fL (79-100) Mean Corpuscular Hemoglobin 31 pg (25-35) Mean Corpuscular Hemoglobin Concent 35 g/dL (31-37) Red Cell Distribution Width 13.5 % (11.5-14.5) Platelet Count 232 x10^3/uL (140-400) Neutrophils (%) (Auto) 43 % (31-73) Lymphocytes (%) (Auto) 39 % (24-48) Monocytes (%) (Auto) 13 % (0-9) Eosinophils (%) (Auto) 4 % (0-3) Basophils (%) (Auto) 1 % (0-3) Neutrophils # (Auto) 2.7 x10^3uL (1.8-7.7) Lymphocytes # (Auto) 2.4 x10^3/uL (1.0-4.8) Monocytes # (Auto) 0.8 x10^3/uL (0.0-1.1) Eosinophils # (Auto) 0.2 x10^3/uL (0.0-0.7) Basophils # (Auto) 0.1 x10^3/uL (0.0-0.2) BUN/Creatinine Ratio 13 (6-20) Albumin/Globulin Ratio 1.3 (1.0-1.7) Brief Hospital Course: Mr. Butler is a 23 old male who came to emergency department with suicidal ideation and he was reportedly bang his head on a countertop at home. He has history of prior suicide attempts with overdose. He was found to have potassium 3.3 his liver enzymes were slightly elevated and urine drug screen positive for marijuana. He was also having right upper quadrant abdominal pain worse after eating with associated tenderness and he was admitted for further observation and evaluation. I'm notified today that the patient has left AGAINST MEDICAL ADVICE I was unable to see him today prior to his leaving. Discharge Information: Follow Up: As Needed Disposition/Orders: D/C to Home (he reportedly left AMA see discharge instructions for nursings recommendations to him) Home Meds: Active Scripts Oxycodone Hcl/Acetaminophen (PERCOCET 5-325 MG TABLET) 1 Each Tablet, 1-2 TAB PO Q6HRS PRN for PAIN, #14 TAB Prov:BRADLEY CASTILLO MD 11/06/16 Ondansetron (ZOFRAN ODT) 4 Mg Tab.rapdis, 4 MG PO Q6HRS PRN for NAUSEA/VOMITING , #10 TAB Prov:BRADLEY CASTILLO MD 11/06/16 Hydrocodone Bit/Acetaminophen (NORCO 5-325 TABLET) 1 Each Tablet, 1-2 TAB PO PRN Q6HRS PRN for PAIN, #14 TAB Prov:BRADLEY CASTILLO MD 11/06/16 Amoxicillin/Potassium Clav (AUGMENTIN 875-125 TABLET) 1 Each Tablet, 1 TAB PO BID, #20 TAB Prov:BRADLEY CASTILLO MD 08/08/16 Ondansetron (ZOFRAN ODT) 4 Mg Tab.rapdis, 4 MG PO Q6HRS PRN for NAUSEA/VOMITING , #10 TAB Prov:BRADLEY CASTILLO MD 08/08/16 Hydrocodone Bit/Acetaminophen (NORCO 5-325 TABLET) 1 Each Tablet, 1-2 TAB PO PRN Q6HRS PRN for PAIN, #20 TAB Prov:BRADLEY CASTILLO MD 08/08/16 ELMA LEIVA DO Jul 18, 2018 22:39
== END 2018-07-18 10:15 | disposition left against medical advice (07) | DRG 445 ==
LOC: ER 09:36 → ICU 17:35 → 1 SOUTH 07-17 09:12
PROVIDERS: ADMIT Neuromusculoskeletal Medicine & OMM; ATTEND Neuromusculoskeletal Medicine & OMM
DX: K81.9 Cholecystitis, unspecified (principal); R45.851 Suicidal ideations; F12.10 Cannabis abuse, uncomplicated; E87.6 Hypokalemia; F17.210 Nicotine dependence, cigarettes, uncomplicated; G43.A0 Cyclical vomiting, in migraine, not intractable; I88.0 Nonspecific mesenteric lymphadenitis; S09.90XA Unspecified injury of head, initial encounter; Z91.5 Personal history of self-harm; Z53.21 Procedure and treatment not carried out due to patient leaving prior to being seen by health care provider; F32.9 Major depressive disorder, single episode, unspecified; F41.9 Anxiety disorder, unspecified; G43.909 Migraine, unspecified, not intractable, without status migrainosus; W18.39XA Other fall on same level, initial encounter; Y93.89 Activity, other specified; Y92.89 Other specified places as the place of occurrence of the external cause; Y99.8 Other external cause status
CPT/HCPCS: 36415; 70450; 72125; 76700; 76881; 80048; 80053; 80076; 80307; 81001; 83690; 85025; 87641; G0480; 99285-25; G0479